=== PATIENT | female | born 1990 | race Two or more races ===

== ENCOUNTER 2023-03-14 10:43 | Emergency (ER) | payer OTHER ==
[~2023-03-14] VITALS: Ht 149.9 cm; Wt 73.3 kg
[2023-03-14 12:52] VITALS: BP 136/89; PULSE 93; RESP 13; TEMP 97.4; O2SAT 98
[2023-03-14] MEDS ORDERED: NABU-72 PO (13:57)
== END 2023-03-14 14:17 | disposition home or self-care (01) ==
LOC: ER 10:43
DX: S33.5XXA Sprain of ligaments of lumbar spine, initial encounter (principal); M54.2 Cervicalgia; R07.89 Other chest pain; V43.62XA Car passenger injured in collision with other type car in traffic accident, initial encounter; Y93.89 Activity, other specified; Y92.488 Other paved roadways as the place of occurrence of the external cause; Y99.8 Other external cause status
CPT/HCPCS: 71046; 72040; 72100